=== PATIENT | male | born 1970 | race Caucasian/White ===

== ENCOUNTER 2016-11-15 11:10 | Emergency (ER) | payer OTHER ==
[~2016-11-15] VITALS: Ht 182.9 cm; Wt 90.0 kg
[~2016-11-15 11:10] MED LIST: ACET1TAB40 PO; CYCL-319 PO; IBUP-1542 PO
[2016-11-15 11:12] VITALS: Ht 182.9 cm; Wt 90.0 kg
[2016-11-15] MEDS ORDERED: KETOROLAC 60 MG INJ IM STA (11:31)
--- NOTE | 2016-11-15 11:36 | ERD ---
ER Documentation Chief Complaint Date/Time DATE: 11/15/16 TIME: 11:32 Chief Complaint BACK PAIN RAD RIGHT LEG SINCE SATURDAY HPI Patient is a 46-year-old male who presents with right-sided lower lumbar pain. He denies any trauma but the pain started on Saturday when he pulled a heavy object and felt a pulling in the lower back. He is ambulatory. He takes naproxen which helps temporarily. He denies any numbness or tingling, saddle anesthesia, nausea, vomiting, fever, bowel or bladder incontinence. ROS All systems reviewed and are negative except as per history of present illness. Medications Home Meds Active Scripts Cyclobenzaprine Hcl* (Cyclobenzaprine Hcl*) 10 Mg Tablet, 10 MG PO TID, #21 TAB Prov:CHO,COLTEN 10/31/14 Acetaminophen-Codeine* (Acetaminophen-Cod #3*) 300-30 Mg Tab, 1 TAB PO Q4H Y for PAIN LEVEL 6-10, #15 TAB Prov:CHO,COLTEN 10/31/14 Ibuprofen* (Motrin*) 600 Mg Tab, 600 MG PO Q6 for PAIN LEVEL 1-5, #15 TAB Prov:CHO,COLTEN 10/31/14 Allergies Allergies: Coded Allergies: No Known Allergy (Unverified , 10/31/14) PMhx/Soc Hx Alcohol Use: No Hx Substance Use: No Hx Tobacco Use: No FmHx Family History: No diabetes Physical Exam Vitals Vital Signs Date Time Temp Pulse Resp B/P Pulse Ox O2 Delivery O2 Flow Rate FiO2 11/15/16 11:12 98.2 65 18 140/81 99 Physical Exam General: well developed, well nourished, alert, nontoxic, no distress Head: normocephalic, atraumatic Eyes: PERRL, normal conjunctiva Neck: Supple, nontender, no lymphadenopathy, no midline tenderness Respiratory: Clear to auscaultation bilaterally, speaks in full sentences, no use of accesory muscles or labored breathing, no rales, ronchi, or wheezing Cardiovascular: RRR, No murmurs GI: soft, non tender, non distended, negative murphys sign, negative mcburneys point tenderness, no cva tenderness bilaterally, no rebound or guarding Back: no midline tenderness, no step offs or bony abnormalities, sensation to light touch in tact Extremities: moving all extremities normally, normal gait, no edema Procedures/MDM This patient has back pain after pulling a heavy object. He is ambulatory neurovascular intact. He has no bowel or bladder incontinence or saddle anesthesia. He has some relief of his symptoms with naproxen at home. He was given a Toradol injection here in the emergency room he was discharged with anti -inflammatories and Flexeril. Recommended this patient follow up with her primary care doctor within 48 hours or return to the emergency room for any worsening of symptoms. However this time I do believe there is suitable for outpatient management. I answered all their questions and they agreed with the plan and were discharged home. Departure Diagnosis: Primary Impression: Back pain Condition: Stable LIONEL COMER PA-C Nov 15, 2016 11:36
[2016-11-15] MEDS ORDERED: IBUP-1542 PO (11:37)
[2016-11-15] MEDS ORDERED: CYCL-319 PO (11:37)
== END 2016-11-15 11:48 | disposition home or self-care (01) ==
LOC: FTE 11:10
DX: M54.5 Low back pain (principal)
CPT/HCPCS: 96372; J1885; Z7502